=== PATIENT | female | born 1965 | race Caucasian/White ===

== ENCOUNTER 2018-10-29 08:20 | Inpatient (IN) ==
[2018-10-29] MEDS ORDERED: NS 1,000 ML IV ONE (08:30)
[2018-10-29] MEDS ORDERED: HUMULIN R IV ONE ×2 (08:31→10:23)
--- NOTE | 2018-10-29 08:34 | EKG Report ---
Test Performed on : 10/29/2018 08:15:00 AM Test Reason : ams Blood Pressure : / mmHG Vent. Rate : 088 BPM Atrial Rate : 088 BPM P-R Int : 142 ms QRS Dur : 132 ms QT Int : 400 ms P-R-T Axes : 057 023 034 degrees QTc Int : 484 ms Normal sinus rhythm. Right bundle branch block Abnormal ECG No previous ECGs available Unconfirmed Result
[2018-10-29 08:43] LABS: URINE SOURCE CATH
[2018-10-29 08:56] LABS: BASO# 0.03 X1000 (0.0-0.2); BASO% 0.4 % (0.0-0.8); EOS# 0.16 X1000 (0.0-0.7); EOS% 1.9 % (0.0-10.0); HEMATOCRIT 37.7 % (37.0-47.0); HEMOGLOBIN 13.3 g/dL (12.0-16.0); IMM GRAN# 0.03 X1000 (0.0-0.04); IMM GRAN% 0.4 % (0.0-0.5); LYMPH# 1.28 X1000 (1.2-3.4); LYMPH% 15.2 % (20.5-51.1); MCH 33.3 PG (27-31); MCHC 35.3 g/dL (33-37); MCV 94.5 FL (81-99); MONO# 0.46 X1000 (0.11-0.59); MONO% 5.5 % (1.7-9.3); MPV 10.5 FL (7.4-10.4); NEUT# 6.44 X1000 (1.4-6.5); NEUT% 76.6 % (42.2-75.2); PLT 211 X1000 (130-400); RBC 3.99 XMIL (4.2-5.4); RDW 12.6 % (11.5-14.5)
--- NOTE | 2018-10-29 08:57 | Diag Imaging Result Doc PS360 ---
EXAM: CHEST-1 VIEW 10/29/2018 HISTORY: ams TECHNIQUE: AP upright portable at 0843 COMMENT: There is no evidence of acute cardiac or pulmonary disease. There are no previous studies. IMPRESSION: No evidence of acute disease. Electronically signed by Percy Vazquez 10/29/2018 8:55 AM
[2018-10-29 08:59] LABS: BILIRUBIN URINE NEGATIVE (NEGATIVE); BLOOD URINE NEGATIVE (NEGATIVE); COLOR STRAW; GLUCOSE URINE >1000 mg/dL (NEGATIVE); KETONE URINE 80 mg/dL (NEGATIVE); LEUKOCYTES URINE SMALL (NEGATIVE); NITRITE URINE POSITIVE (NEGATIVE); PROTEIN URINE NEGATIVE (NEGATIVE); SP GRAVITY URINE 1.021; TURBIDITY URINE CLEAR (CLEAR); UR EPITHELIAL CELLS <10 /HPF (<10); URINE BACTERIA 2+ /HPF; URINE RBC <10 /HPF (<10); URINE WBC 20-40 /HPF (<10); UROBILINOGEN URINE NORMAL (NORMAL)
--- NOTE | 2018-10-29 09:12 | Diag Imaging Result Doc PS360 ---
CT HEAD W/O CONTRAST - 10/29/2018 INDICATION: ams COMPARISON: None FINDINGS: The ventricles and sulci are normal in size and contour. No intracranial mass or hemorrhage. The skull is intact. The sinuses mastoids and middle ears are clear. IMPRESSION: Negative exam. This exam was performed using automated exposure control, adjustment of mA or kV according to patient size, and/or use of iterative reconstruction technique Electronically signed by Luis M Ruiz 10/29/2018 9:10 AM
[2018-10-29 09:16] LABS: AGAP 19; ALB/GLOB RATIO 1.8; ALBUMIN 4.2 g/dL (3.5-5.0); ALKALINE PHOSPHATASE 96 U/L (32-104); BUN 26 mg/dL (8-22); CALCIUM 9.7 mg/dL (8.8-10.2); CHLORIDE 101 mmol/L (98-107); COSMO 311; CREATININE 0.7 mg/dL (0.5-0.9); ESTIMATED GFR > 60; GOT 14 U/L (10-30); GPT 16 U/L (10-36); POTASSIUM 4.6 mmol/L (3.5-5.1); SODIUM 140 mmol/L (136-145); TCO2 20 mmol/L (25-35); TOTAL BILIRUBIN 0.63 mg/dL (0.20-1.00); TOTAL PROTEIN 6.5 g/dL (6.3-8.3)
[2018-10-29 09:16] LABS: UR AMPHETAMINES QUAL NONE DETECTED (NONE DETECT); UR BARBITUATES QUAL NONE DETECTED (NONE DETECT); UR BENZODIAZEPIN QUAL NONE DETECTED (NONE DETECT); UR CANNABINOIDS QUAL PRESUMPTIVE POSITIVE (NONE DETECT); UR COCAINE QUAL NONE DETECTED (NONE DETECT); UR METHADONE QUAL NONE DETECTED (NONE DETECT); UR OPIATES QUAL NONE DETECTED (NONE DETECT); UR OXYCODONE QUAL NONE DETECTED (NONE DETECT); UR PCP QUAL NONE DETECTED (NONE DETECT)
[2018-10-29 09:21] LABS: ACETONE SERUM MODERATE (NEGATIVE)
[2018-10-29 09:28] LABS: ALLEN TEST YES; BE -6.6 mmoll (-3.0-3.0); BLOOD TYPE ARTERIAL; HCO3-(ACT) 19.7 mmoll (20.0-26.0); METHB 0.8 % (0.0-1.5); O2(CT) 18.3 mL/dL (15.0-23.0); PCO2(98.6) 35 mmHg (35-45); PO2(98.6) 90 mmHg (60-100); SAMPLE BLOOD; SAO2 96.7 % (95.0-100.0); THB 13.8 g/dL (11.5-17.4); pH(98.6) 7.33 (7.35-7.45)
[2018-10-29 09:29] LABS: MODALITY ROOM AIR
[2018-10-29 09:32] LABS: GLUCOSE 595 mg/dL (70-104)
--- NOTE | 2018-10-29 09:52 | PROVIDER DOCUMENTATION ---
HPI-Neurological Disorder - General Chief Complaint: Altered Mental Status Stated Complaint: AMS Time Seen by Provider: 10/29/18 08:27 Source: patient Allergies/Adverse Reactions: Patient Allergies Allergy/AdvReac Type Severity Reaction Status Date / Time No Known Allergies Allergy Verified 10/29/18 08:40 Home Medications: Home Medication List Medication Instructions Recorded Confirmed Last Taken Type Unobtainable [Home Meds 10/29/18 10/29/18 Unknown History Unobtainable] - History of Present Illness-Neuro Nature of Presenting Problem: 53 y/o WF c/o confusion and blood sugar being high for unknown timeframe. Pt is difficult historian and family not present to assist. Pt mainly only mumbles her name and that its March. Severity: reports: mild Onset/Duration: reports: unsure Timing: reports: still present Context: reports: other (pt c/o having high blood sugar and has mild confusion.) Character of Altered Mental Status: reports: confused Any recent trauma/injury?: reports: none Character of Deficits: denies: new weakness, altered sensation, vision problem/glaucoma, impaired speech, impaired swallowing, decreased ability to stand, decreased ability to walk, falling New weakness or altered sensation location:: reports: none Cognitive Baseline: alert but confused Gait Baseline: walks without assistance Associated Symptoms: reports: confusion Similar Symptoms Previously?: No Recently seen or treated by another doctor?: No Review of Systems - Adult - REVIEW OF SYSTEMS - ADULT ROS:: limited per condition Constitutional: reports: no symptoms reported, see HPI Eyes: reports: no symptoms reported, see HPI Ears, Nose, Mouth & Throat: reports: no symptoms reported, see HPI Cardiovascular: reports: no symptoms reported, see HPI Respiratory: reports: no symptoms reported, see HPI Gastrointestinal: reports: no symptoms reported, see HPI Genitourinary: reports: no symptoms reported, see HPI Musculoskeletal: reports: no symptoms reported, see HPI Integumentary: reports: no symptoms reported, see HPI Neurological: reports: see HPI Psychiatric: reports: no symptoms reported, see HPI Endocrine: reports: no symptoms reported, see HPI Hematologic/Lymphatic: reports: no symptoms reported, see HPI Allergic/Immunologic: reports: no symptoms reported, see HPI All Other Systems: Reviewed and Negative Past History - Adult - PAST MEDICAL HISTORY-ADULT Review of Records: reports: Nursing Assessment Review, Medications Reviewed, Social history reviewed & non-contributory. Physical Exam- Neurological - Physical Exam-Neuro Initial Vital Signs Reviewed: Yes General Appearance: appears well, no apparent distress, lethargic, slow to respond Eye Exam: bilateral eye: normal inspection, PERRL, EOMI HENMT: normocephalic/atraumatic, moist mucous membranes Head Injury: no evidence of injury Neck: non-tender Respiratory: chest non-tender, lungs clear, normal breath sounds, no pleuratic chest pain, no respiratory distress, no accessory muscle use Cardiovascular: normal peripheral pulses, regular rate, rhythm, no edema, no gallop, no JVD, no murmur Abdominal Exam: normal bowel sounds, non tender, soft Lymphatic: no adenopathy Extremity: normal range of motion, non-tender, normal gait, normal inspection, no pedal edema, no calf tenderness, normal capillary refill wall attendant Exam: normal hearing, normal speech, PERRL Coordination/Gait: normal finger to nose Motor/Sensory: no motor deficit, no sensory deficit, no pronator drift Neurologic: wall attendant II-XII nml as tested, grossly normal, no motor/sensory deficits Integumentary: normal color, normal turgor Psych/Mental Status: normal mood/affect, normal thought content, normal thought process, oriented x 3 - Glascow Coma Scale Best Eye Response: (4) open spontaneously Best Verbal Response: (4) confused conversation Best Motor Response: (6) obeys commands Progress - PLAN OF CARE/RESULTS Progress/Plan/Lab Results: Vital Signs - 8 hr 10/29/18 08:20 Temperature 98.1 F Pulse Rate 88 Respiratory Rate 17 Blood Pressure 150/90 O2 Sat by Pulse Oximetry 100 Laboratory Results - last 24 hr 10/29/18 10/29/18 10/29/18 08:15 08:20 08:20 WBC 8.40 RBC 3.99 L Hgb 13.3 Hct 37.7 MCV 94.5 MCH 33.3 H MCHC 35.3 RDW Std Deviation 12.6 Plt Count 211 MPV 10.5 H Immature Gran % (Auto) 0.4 Neut % (Auto) 76.6 H Lymph % (Auto) 15.2 L [place] % (Auto) 5.5 Eos % (Auto) 1.9 Baso % (Auto) 0.4 Immature Gran # (Auto) 0.03 Neut # (Auto) 6.44 Lymph # (Auto) 1.28 [place] # (Auto) 0.46 Eos # (Auto) 0.16 Baso # (Auto) 0.03 Specimen Type ARTERIAL Sample Site R RADIAL pH 7.33 L pCO2 35 pO2 90 HCO3 19.7 L Base Excess -6.6 L Oxyhemoglobin 94.0 L ABG O2 Sat (Calculated) 18.3 ABG O2 Saturation 96.7 ABG Carboxyhemoglobin 2.00 ABG Methemoglobin 0.8 John Test YES A-a O2 Difference 16.0 Total Hemoglobin 13.8 Lactate 3.10 H Blood Gas Modality ROOM AIR FiO2 % 21.0 Sodium 140 Potassium 4.6 Chloride 101 Carbon Dioxide 20 L Anion Gap 19 BUN 26 H Creatinine 0.7 Estimated GFR/1.73 m2 > 60 BUN/Creatinine Ratio 37 Glucose 595 H* POC Glucose Calculated Osmolality 311 Calcium 9.7 Total Bilirubin 0.63 AST 14 ALT 16 Alkaline Phosphatase 96 Troponin T Total Protein 6.5 Albumin 4.2 Globulin 2.3 Albumin/Globulin Ratio 1.8 Urine Source Urine Color Urine Turbidity Urine pH Ur Specific [place] Urine Protein Ur Glucose (Stick) Ur Ketones (Stick) Urine Blood Urine Nitrite Urine Bilirubin Urobilinogen Dipstick Urine Leukocytes Urine WBC (Auto) Urine RBC (Auto) U Epithel Cells (Auto) Urine Bacteria (Auto) Urine Opiates Screen Ur Oxycodone Screen Ur Methadone, Qual Ur Barbiturates Screen Ur Phencyclidine Scrn Ur Amphetamines Screen U Benzodiazepines Scrn Urine Cocaine Screen U Cannabinoids Screen Acetone Level MODERATE A 10/29/18 10/29/18 10/29/18 08:20 08:20 08:30 WBC RBC Hgb Hct MCV MCH MCHC RDW Std Deviation Plt Count MPV Immature Gran % (Auto) Neut % (Auto) Lymph % (Auto) [place] % (Auto) Eos % (Auto) Baso % (Auto) Immature Gran # (Auto) Neut # (Auto) Lymph # (Auto) [place] # (Auto) Eos # (Auto) Baso # (Auto) Specimen Type Sample Site pH pCO2 pO2 HCO3 Base Excess Oxyhemoglobin ABG O2 Sat (Calculated) ABG O2 Saturation ABG Carboxyhemoglobin ABG Methemoglobin John Test A-a O2 Difference Total Hemoglobin Lactate Blood Gas Modality FiO2 % Sodium Potassium Chloride Carbon Dioxide Anion Gap BUN Creatinine Estimated GFR/1.73 m2 BUN/Creatinine Ratio Glucose POC Glucose Calculated Osmolality Calcium Total Bilirubin AST ALT Alkaline Phosphatase Troponin T < 0.010 Total Protein Albumin Globulin Albumin/Globulin Ratio Urine Source CATH Urine Color STRAW Urine Turbidity CLEAR Urine pH 6.0 Ur Specific [place] 1.021 Urine Protein NEGATIVE Ur Glucose (Stick) >1000 A Ur Ketones (Stick) 80 A Urine Blood NEGATIVE Urine Nitrite POSITIVE A Urine Bilirubin NEGATIVE Urobilinogen Dipstick NORMAL Urine Leukocytes SMALL A Urine WBC (Auto) 20-40 A Urine RBC (Auto) <10 U Epithel Cells (Auto) <10 Urine Bacteria (Auto) 2+ Urine Opiates Screen NONE DETECTED Ur Oxycodone Screen NONE DETECTED Ur Methadone, Qual NONE DETECTED Ur Barbiturates Screen NONE DETECTED Ur Phencyclidine Scrn NONE DETECTED Ur Amphetamines Screen NONE DETECTED U Benzodiazepines Scrn NONE DETECTED Urine Cocaine Screen NONE DETECTED U Cannabinoids Screen PRESUMPTIVE POSITIVE A Acetone Level 10/29/18 09:49 WBC RBC Hgb Hct MCV MCH MCHC RDW Std Deviation Plt Count MPV Immature Gran % (Auto) Neut % (Auto) Lymph % (Auto) [place] % (Auto) Eos % (Auto) Baso % (Auto) Immature Gran # (Auto) Neut # (Auto) Lymph # (Auto) [place] # (Auto) Eos # (Auto) Baso # (Auto) Specimen Type Sample Site pH pCO2 pO2 HCO3 Base Excess Oxyhemoglobin ABG O2 Sat (Calculated) ABG O2 Saturation ABG Carboxyhemoglobin ABG Methemoglobin John Test A-a O2 Difference Total Hemoglobin Lactate Blood Gas Modality FiO2 % Sodium Potassium Chloride Carbon Dioxide Anion Gap BUN Creatinine Estimated GFR/1.73 m2 BUN/Creatinine Ratio Glucose POC Glucose 401 H Calculated Osmolality Calcium Total Bilirubin AST ALT Alkaline Phosphatase Troponin T Total Protein Albumin Globulin Albumin/Globulin Ratio Urine Source Urine Color Urine Turbidity Urine pH Ur Specific [place] Urine Protein Ur Glucose (Stick) Ur Ketones (Stick) Urine Blood Urine Nitrite Urine Bilirubin Urobilinogen Dipstick Urine Leukocytes Urine WBC (Auto) Urine RBC (Auto) U Epithel Cells (Auto) Urine Bacteria (Auto) Urine Opiates Screen Ur Oxycodone Screen Ur Methadone, Qual Ur Barbiturates Screen Ur Phencyclidine Scrn Ur Amphetamines Screen U Benzodiazepines Scrn Urine Cocaine Screen U Cannabinoids Screen Acetone Level Orders Category Date Time Status Nursing- Obtain EKG ONCE Care 10/29/18 08:29 Active CHEST-1 VIEW [RAD] Stat Exams 10/29/18 08:[address] HEAD W/O CONTRAST [CT] Stat Exams 10/29/18 08:35 Completed ABG [RESP] Routine Lab 10/29/18 08:15 Completed ACETONE SERUM [CHEM] Stat Lab 10/29/18 08:20 Completed CBC WITH ELECTRONIC DIFF [HEME] Stat Lab 10/29/18 08:20 Completed COMPREHENSIVE METABOLIC PANEL [CHEM] Stat Lab 10/29/18 08:20 Completed TROPONIN T Stat Lab 10/29/18 08:20 Completed URINALYSIS [URINALYSIS] Stat Lab 10/29/18 08:20 Completed URINE DRUG SCREEN Stat Lab 10/29/18 08:30 Completed 0.9% Sodium Chloride Inj [Ns] 1,000 ml Med 10/29/18 08:30 Discontinued IV 999 mls/hr Insulin Human Regular [Humulin R] Med 10/29/18 08:31 Discontinued 10 unit IV NOW ONE EKG [EKG] Stat Ther 10/29/18 08:29 Draft Result Diagrams: 10/29/18 08:20 10/29/18 08:20 - CT/MRI 1 CT Study: Head Impression: Normal, See EMR Report ([facility] - [address], [address] [address] [facility] - [address] [place] [address] Department of Imaging Patient: CHRISTINE COOKADM Date: 10/29/18MR#: [id number] : 1965ADM Status: PRE ERAcct#: [id number] Age/Sex: 53/FRoom/Bed: Loc: ED Ordering Physician: Marbin Vera MD Family Physician: Reason for Procedure: ams ___ Signed CT HEAD W/O CONTRAST - 10/29/2018 INDICATION: ams COMPARISON: None FINDINGS: The ventricles and sulci are normal in size and contour. No intracranial mass or hemorrhage. The skull is intact. The sinuses mastoids and middle ears are clear. IMPRESSION: Negative exam. This exam was performed using automated exposure control, adjustment of mA or kV according to patient size, and/or use of iterative reconstruction technique Electronically signed by LuisM Ruiz 10/29/2018 9:10 AM 10/29/18 0910 Interpreting Physician: Luis M Ruiz MD Dictated Date/Time: 10/29/18 0900 cc: Marbin Vera MD;) - CONSULTS/PCP/HOSPITALIST Notification #1 *Consult/PCP/Hospitalist*: Leida for Dr Tipton Time Discussed: 09:45 Consult Disposition: Will see in ED, Admit Departure - Departure Date of Disposition Decision: 10/29/18 Time of Disposition Decision: 10:01 DIAGNOSIS: DKA (diabetic ketoacidoses), Altered mental status, UTI (urinary tract infection), Substance abuse Disposition: ADMITTED INPATIENT 09 Certified Medical Emergency: Emergent Condition: Fair - Critical Care Note This patient required my direct & personal management of CC.: No Attestation - Physician/ MARINA Attestation Patient care was provided by Advanced Practice Provider:: No The physician spent face to face time with patient:: Yes Advanced Practice Provider documentation review:: Supervising physician onsite and consulted in the evaluation and care of this patient. The physician did have a face to face encounter with the patient. - NIH Stroke Scale NIH Type: Initial Evaluation Level of Consciousness: 1-Drowsy, but arousable with minimal stimulation LOC Questions (ask month and age): 1-Answers One Correctly Best Gaze (horizontal eye movement): 0-Normal Visual (use finger movement, counting or visual threat): 0-No Visual Loss Facial Palsy (show teeth or raise eyebrows & close eyes tght: 0-Symmetrical Movement Motor Function-left arm: 0-Normal Motor Function-right arm: 0-Normal Motor Function-left le-Normal Motor Function-right le-Normal Limb Ataxia(vuxbhb-fiwj-vpndlo, or heel to day): 0-No Ataxia Sensory(pin prick to face,arms,trunk,legs-compare side/side): 0-No Ataxia Best Language(name item/read sentence.Ex-Down to Earth): 0-No Aphasia Dysarthria(Pt read words or say words Ex.Mama,Tip-Top,Thanks: 0-Normal Articulation Extinction and Inattention: 0-Normal Modified [place] Score Criteria: 0-no symptoms
[2018-10-29] MEDS ORDERED: ROCEPHIN 1 GM in NS 50 ML IV ONE (10:04)
--- NOTE | 2018-10-29 10:08 | ED EKG INTERP ---
This chart was entered by Krysten Hodge Scribe, acting as scribe for Marbin Vera MD. EKG Interpretation - EKG Time of EKG reading by physician:: 08:15 EKG Read and Signed by:: Marbin Vera EKG Interpretation (*Must complete 3 of following elements*): Abnormal Rate: 88 Rhythm: nsr QRS: RBB SD Interval: normal ST Wave: normal Attestation - Physician/ MARINA Attestation Patient care was provided by Advanced Practice Provider:: No The physician spent face to face time with patient:: Yes Advanced Practice Provider documentation review:: Supervising physician onsite and consulted in the evaluation and care of this patient. The physician did have a face to face encounter with the patient. This chart was documented by the indicated scribe, (Krysten Hodge Scribe) and accurately reflects the services I performed and decisions made by me, Marbin Vera MD, as attested by the provider's signature.
[2018-10-29] MEDS ORDERED: HUMULIN R 100 UNIT in NS 100 ML IV SCH ×3 (10:15→10:45)
[2018-10-29] MEDS ORDERED: D50W SYRINGE IV PRN ×2 (10:23→10:45)
[2018-10-29] MEDS ORDERED: MAGNESIUM SULFATE 2 GM/S.W.I. 50 ML IV PRN (10:23)
[2018-10-29] MEDS ORDERED: D5 1/2 NS 1,000 ML IV PRN (10:23)
[2018-10-29] MEDS ORDERED: SODIUM PHOSPHATE 30 MMOL in D5W 250 ML IV PRN ×2 (10:23→11:00)
[2018-10-29] MEDS ORDERED: POTASSIUM CHLORIDE 10% LIQUID PO PRN ×2 (10:23→11:00)
[2018-10-29] MEDS ORDERED: ZOFRAN IV PRN ×2 (10:23→10:45)
[2018-10-29] MEDS ORDERED: SODIUM BICARBONATE 8.4% 100 MEQ in STERILE WATER INJ. 500 ML IV PRN ×2 (10:23→11:00)
[2018-10-29] MEDS ORDERED: TYLENOL PO PRN ×2 (10:23→10:45)
[2018-10-29] MEDS ORDERED: NS 1,000 ML IV SCH ×2 (10:30)
[2018-10-29] MEDS ORDERED: POTASSIUM CHLORIDE 40 MEQ/SWI 40 MEQ/100 ML IVPB IV PRN (11:00)
[2018-10-29] MEDS ORDERED: ZOFRAN PO PRN (11:00)
[2018-10-29] MEDS ORDERED: POTASSIUM CHLORIDE 20% LIQUID PO PRN (11:00)
[2018-10-29] MEDS ORDERED: MAGNESIUM SULFATE 2 GM/S.W.I. 2 GM/50 ML IVPB IV PRN (11:00)
--- NOTE | 2018-10-29 11:18 | HISTORY AND PHYSICAL ---
PRIMARY CARE PHYSICIAN: Unknown. CHIEF COMPLAINT: Altered mental status, confusion, and an increased blood sugar for an unknown time frame. The patient noted to be difficult historian, minimally answering questions, only mumbles her name and that it is March. No family present at this time. HISTORY OF PRESENTING ILLNESS: This is a 53-year-old female, who presents to [facility] with complaints of increased confusion, high blood sugar for an unknown time frame. The patient is noted to be a very difficult historian, would only mumble her name and that it was March. There was no family present at the bedside. When she arrived, her blood sugar was noted to be 595, CO2 was 20, anion gap was 19. ABG showed a pH of 7.33, pCO2 35, PO2 90, bicarbonate 19.7. Her acetone level was moderate. She was presumptive positive for cannabinoids, so she is being admitted to the intensive care unit for mild DKA. She is also noted to have a UTI with positive nitrites, small leukocytes, and 2+ bacteria for further evaluation and treatment. PAST MEDICAL HISTORY: Unknown. PAST SURGICAL HISTORY: Unknown. FAMILY HISTORY: Unknown. SOCIAL HISTORY: Unknown. ALLERGIES: No known drug allergies. HOME MEDICATIONS: Unknown. REVIEW OF SYSTEMS: Unable to obtain from patient, other than when she first got here she had an elevated blood sugar. LABORATORY DATA: Showed a white blood cell count of 8.40, hemoglobin 13.3, hematocrit 37.7, platelets 211. ABG with a pH of 7.33, pCO2 of 35, PO2 90, bicarbonate 19.7 and this was on room air. Sodium 140, potassium 4.6, chloride 101, CO2 20. BUN of 26, creatinine 0.7 glucose 595. Troponin less than 0.010. Urinalysis with positive nitrites, small leukocytes and 2+ bacteria. Urine drug screen was presumptive positive for cannabinoids. An acetone level showed moderate. IMAGING STUDIES: Chest x-ray showed no evidence of acute disease. EKG showed normal sinus rhythm at 88. Head CT showed a negative exam. PHYSICAL EXAMINATION: VITAL SIGNS: On arrival she had a temperature of 98.1 degrees, pulse 72, respirations 15, blood pressure 150/90, satting 100% on room air. GENERAL: This is a 53-year-old female, lying in the bed unable to answer questions appropriately. Would only mumble her name and say that it was March. HENT: Normocephalic, atraumatic. Normal ENT inspection. Oropharynx and nares are clear. EYES: Pupils are equal, round, reactive to light and accommodation. Extraocular movements are intact. NECK: Normal inspection, normal range of motion. LUNGS: Clear to auscultation bilaterally with equal lung expansion and chest wall movement. HEART: With regular rate and rhythm. No murmurs, rubs, or gallops. ABDOMEN: Soft, nontender, nondistended. Bowel sounds are present x4 quadrants. MUSCULOSKELETAL: Unable to assess at this time. NEUROLOGICAL: The cranial nerves 2-12 appear grossly intact. ASSESSMENT: 1. Mild diabetic ketoacidosis. 2. Urinary tract infection. 3. Marijuana abuse. 4. Altered mental status. PLAN: She will be admitted to the intensive care unit, placed on telemetry, clear liquid diabetic diet, insulin drip per protocol. Labs per the insulin drip protocol: Rocephin 1 gram IV q. 24 hours, placed on SCD for DVT prophylaxis, insert an indwelling Camejo catheter, obtain daily weights, blood sugars per the protocol and further orders after seen by attending. Dictated by SAL England for Scotty Tipton MD cc: SAL England Agree with the above. the following is my own face to face assessment. Patient quite somnolent with some metabolic encephalopathy but no identifiable focal neurologic deficits on exam. UDS pos for THC so may have had another ingestion as well. will treat DKA and monitor closely. MTDD
[2018-10-29] MEDS: D5 1/2 NS 1,000 ML IV SCH ×3 (11:31→22:35)
[2018-10-29] MEDS: NS 1,000 ML IV SCH ×5 (11:38→22:11)
[2018-10-29 11:59] LABS: AGAP 16; BUN 24 mg/dL (8-22); CALCIUM 9.6 mg/dL (8.8-10.2); CHLORIDE 110 mmol/L (98-107); COSMO 313; CREATININE 0.7 mg/dL (0.5-0.9); ESTIMATED GFR > 60; PHOSPHORUS 3.2 mg/dL (2.7-4.5); POTASSIUM 4.1 mmol/L (3.5-5.1); SODIUM 146 mmol/L (136-145); TCO2 20 mmol/L (25-35)
[2018-10-29 12:07] LABS: GLUCOSE 424 mg/dL (70-104)
[2018-10-29 12:26] LABS: URINE SOURCE CATH
[2018-10-29 12:33] LABS: BILIRUBIN URINE NEGATIVE (NEGATIVE); BLOOD URINE TRACE (NEGATIVE); COLOR YELLOW; GLUCOSE URINE >1000 mg/dL (NEGATIVE); KETONE URINE 60 mg/dL (NEGATIVE); LEUKOCYTES URINE MODERATE (NEGATIVE); NITRITE URINE POSITIVE (NEGATIVE); PH URINE 5.5; PROTEIN URINE TRACE mg/dL (NEGATIVE); SP GRAVITY URINE 1.021; TURBIDITY URINE CLEAR (CLEAR); UROBILINOGEN URINE NORMAL (NORMAL)
[2018-10-29 12:35] LABS: UR EPITHELIAL CELLS <10 /HPF (<10); URINE BACTERIA 1+ /HPF; URINE RBC <10 /HPF (<10); URINE WBC 20-40 /HPF (<10)
[2018-10-29] MEDS: POTASSIUM CHLORIDE 20 MEQ/SWI 20 MEQ/100 ML IVPB IV PRN ×3 (12:37→21:15)
[2018-10-29] MEDS: ZOFRAN IV PRN ×2 (14:40→20:15)
[2018-10-29 16:50] LABS: AGAP 12; BUN 18 mg/dL (8-22); CHLORIDE 117 mmol/L (98-107); COSMO 305; CREATININE 0.6 mg/dL (0.5-0.9); ESTIMATED GFR > 60; GLUCOSE 182 mg/dL (70-104); MAGNESIUM 1.8 mg/dL (1.5-2.7); PHOSPHORUS 2.9 mg/dL (2.7-4.5); POTASSIUM 4.2 mmol/L (3.5-5.1); SODIUM 150 mmol/L (136-145); TCO2 21 mmol/L (25-35)
[2018-10-29 20:28] LABS: AGAP 13; BUN 15 mg/dL (8-22); CALCIUM 9.4 mg/dL (8.8-10.2); CHLORIDE 111 mmol/L (98-107); COSMO 293; CREATININE 0.5 mg/dL (0.5-0.9); ESTIMATED GFR > 60; GLUCOSE 169 mg/dL (70-104); MAGNESIUM 1.7 mg/dL (1.5-2.7); PHOSPHORUS 2.9 mg/dL (2.7-4.5); POTASSIUM 4.3 mmol/L (3.5-5.1); SODIUM 145 mmol/L (136-145); TCO2 21 mmol/L (25-35)
[2018-10-29 23:55] LABS: AGAP 11; BUN 13 mg/dL (8-22); CALCIUM 8.8 mg/dL (8.8-10.2); CHLORIDE 110 mmol/L (98-107); COSMO 283; CREATININE 0.6 mg/dL (0.5-0.9); ESTIMATED GFR > 60; GLUCOSE 200 mg/dL (70-104); PHOSPHORUS 2.9 mg/dL (2.7-4.5); POTASSIUM 4.7 mmol/L (3.5-5.1); SODIUM 139 mmol/L (136-145); TCO2 18 mmol/L (25-35)
[2018-10-30] MEDS: POTASSIUM CHLORIDE 20 MEQ/SWI 20 MEQ/100 ML IVPB IV PRN ×2 (00:10→06:34)
[2018-10-30 04:36] LABS: BE -0.7 mmoll (-3.0-3.0); BLOOD TYPE ARTERIAL; HCO3-(ACT) 24.3 mmoll (20.0-26.0); PCO2(98.6) 35 mmHg (35-45); PO2(98.6) 78 mmHg (60-100); SAMPLE BLOOD; pH(98.6) 7.43 (7.35-7.45)
[2018-10-30 04:37] LABS: ALLEN TEST YES; METHB 0.6 % (0.0-1.5); MODALITY ROOM AIR; O2(CT) 17.4 mL/dL (15.0-23.0); O2HB 94.7 % (95.0-99.0); SAO2 96.5 % (95.0-100.0)
[2018-10-30 05:15] LABS: BASO# 0.02 X1000 (0.0-0.2); BASO% 0.3 % (0.0-0.8); EOS# 0.21 X1000 (0.0-0.7); EOS% 3.1 % (0.0-10.0); HEMATOCRIT 36.4 % (37.0-47.0); HEMOGLOBIN 12.7 g/dL (12.0-16.0); IMM GRAN# 0.02 X1000 (0.0-0.04); IMM GRAN% 0.3 % (0.0-0.5); LYMPH# 2.31 X1000 (1.2-3.4); LYMPH% 34.2 % (20.5-51.1); MCH 32.8 PG (27-31); MCHC 34.9 g/dL (33-37); MCV 94.1 FL (81-99); MONO# 0.48 X1000 (0.11-0.59); MONO% 7.1 % (1.7-9.3); MPV 10.4 FL (7.4-10.4); NEUT# 3.71 X1000 (1.4-6.5); PLT 219 X1000 (130-400); RBC 3.87 XMIL (4.2-5.4); RDW 12.9 % (11.5-14.5); WBC 6.75 X1000 (4.8-10.8)
[2018-10-30 05:43] LABS: MAGNESIUM 1.9 mg/dL (1.5-2.7); PHOSPHORUS 2.4 mg/dL (2.7-4.5)
[2018-10-30 05:58] LABS: AGAP 11; ALB/GLOB RATIO 1.3; ALBUMIN 3.5 g/dL (3.5-5.0); ALKALINE PHOSPHATASE 80 U/L (32-104); BUN 9 mg/dL (8-22); CALCIUM 9.3 mg/dL (8.8-10.2); CHLORIDE 108 mmol/L (98-107); COSMO 283; CREATININE 0.5 mg/dL (0.5-0.9); ESTIMATED GFR > 60; GLUCOSE 185 mg/dL (70-104); GOT 18 U/L (10-30); GPT 13 U/L (10-36); POTASSIUM 4.5 mmol/L (3.5-5.1); SODIUM 140 mmol/L (136-145); TCO2 21 mmol/L (25-35); TOTAL BILIRUBIN 0.35 mg/dL (0.20-1.00); TOTAL PROTEIN 6.3 g/dL (6.3-8.3)
[2018-10-30] MEDS: NS 1,000 ML IV SCH ×2 (06:38→14:28)
[2018-10-30] MEDS: D5 1/2 NS 1,000 ML IV SCH ×2 (06:42→14:43)
[2018-10-30] MEDS: HUMALOG SUBQ SCH ×3 (10:12→22:57)
[2018-10-30] MEDS: LANTUS INSULIN SUBQ SCH (10:12)
[2018-10-30] MEDS: ZOFRAN IV PRN (10:59)
[2018-10-30] MEDS: ROCEPHIN 1 GM in NS 50 ML IV SCH (11:30)
[2018-10-30 13:07] LABS: AGAP 9; BUN 7 mg/dL (8-22); CALCIUM 9.5 mg/dL (8.8-10.2); CHLORIDE 107 mmol/L (98-107); COSMO 278; CREATININE 0.6 mg/dL (0.5-0.9); ESTIMATED GFR > 60; GLUCOSE 140 mg/dL (70-104); MAGNESIUM 1.9 mg/dL (1.5-2.7); PHOSPHORUS 2.8 mg/dL (2.7-4.5); POTASSIUM 4.4 mmol/L (3.5-5.1); SODIUM 139 mmol/L (136-145); TCO2 23 mmol/L (25-35)
[2018-10-30] MEDS: NORVASC PO SCH (15:52)
--- NOTE | 2018-10-30 15:59 | PROGRESS NOTE ---
DATE: 10/30/2018 INTERVAL HISTORY: The patient is still slightly somnolent but much easily arousable. Cooperative and conversant. No acute events overnight. No new complaints. REVIEW OF SYSTEMS: Twelve point review of systems negative except as per interval history. LABORATORY: WBC 6.7, hemoglobin 12.7, hematocrit 36.4, and platelets 219,000. ABG with pH 7.4, pCO2 35, and p02 78 on room air. Sodium 140, potassium 4.6, bicarb 21, anion gap 11, BUN is 9, creatinine 0.5, glucose 180 to 200's. Repeat bicarb 23 and repeat gap 9. VITALS: T-max 98.2 degrees, pulse 73, respirations 12, and blood pressure 167/93. 02 sat 97% on room air. PHYSICAL EXAMINATION: General: No acute distress. Vitals: As above. HEENT: Normocephalic, atraumatic. Moist mucous membranes. No cervical adenopathy. Cardiovascular: Regular rate and rhythm. No murmurs noted. Pulmonary: Clear to auscultation bilaterally. No wheezing, rales, or rhonchi. Abdomen: Soft. Nontender. Nondistended. Bowel sounds present. Extremities: Peripheral pulses are intact. No clubbing or cyanosis. Neurologic: Cranial nerves grossly intact. No focal deficits identified. Psychiatric: Asleep but arousable, slightly somnolent. Suspect sleepy easily, but remains awake as long as she is stimulated. Cooperative, fairly conversant. Oriented to person and place but struggles with time. ASSESSMENT AND PLAN: 1. DKA. Appears to be resolved. Transitioned to subcutaneous insulin. Repeat labs still with closed gap. We will move her to the floor. Monitor her to make sure her gap remains closed on subcu insulin. If she continues to improve, may be able to be discharged home tomorrow. 2. Possible urinary tract infection. Patient on Rocephin. Afebrile. Continue Rocephin. 3. Pseudohyponatremia likely due to profound hyperglycemia, now resolved. 4. Medical noncompliance. Patient was not taking her insulin for several days prior to admission. The patient educated on the importance of compliance. 5. Hypertension remains elevated. It has been fairly consistently elevated. We will go ahead and start her on Norvasc and monitor. 6. Cardiac murmur. Uncertain, if she has had a previous workup. Likely benign, but we will check echocardiogram to make sure. 7. Vitiligo stable. 8. Marijuana use. The patient's admission UDS positive for marijuana. Given somnolence and confusion on admission, may have had other ingestion as well although her UDS was otherwise unremarkable. We do not really have a good home medication list. Polypharmacy could also play a role. She does appear to be improving. We will continue to monitor. E.J. NOBLE HOSPITALMoira
[2018-10-30] MEDS ORDERED: MYLICON DROPS PO PRN (17:30)
[2018-10-30] MEDS: PROTONIX PO SCH (17:56)
[2018-10-30] MEDS: ZANTAC PO SCH (22:55)
[2018-10-30] MEDS: TYLENOL PO PRN (23:04)
[2018-10-31] MEDS: HUMALOG SUBQ SCH ×2 (06:24→11:20)
[2018-10-31] MEDS: PROTONIX PO SCH (06:26)
[2018-10-31] MEDS ORDERED: SYNTHROID PO SCH (07:00)
[2018-10-31 07:49] VITALS: BP 144/76
[2018-10-31 08:08] LABS: BASO# 0.03 X1000 (0.0-0.2); BASO% 0.4 % (0.0-0.8); EOS# 0.19 X1000 (0.0-0.7); EOS% 2.8 % (0.0-10.0); HEMOGLOBIN 13.3 g/dL (12.0-16.0); IMM GRAN# 0.02 X1000 (0.0-0.04); IMM GRAN% 0.3 % (0.0-0.5); LYMPH% 27.7 % (20.5-51.1); MCH 32.2 PG (27-31); MCHC 34.1 g/dL (33-37); MCV 94.4 FL (81-99); MONO# 0.45 X1000 (0.11-0.59); MONO% 6.6 % (1.7-9.3); MPV 10.3 FL (7.4-10.4); NEUT# 4.28 X1000 (1.4-6.5); NEUT% 62.2 % (42.2-75.2); PLT 205 X1000 (130-400); RBC 4.13 XMIL (4.2-5.4); RDW 12.7 % (11.5-14.5); WBC 6.87 X1000 (4.8-10.8)
[2018-10-31 08:40] LABS: AGAP 15; BUN 11 mg/dL (8-22); CALCIUM 9.4 mg/dL (8.8-10.2); CHLORIDE 103 mmol/L (98-107); COSMO 286; CREATININE 0.7 mg/dL (0.5-0.9); ESTIMATED GFR > 60; FREE T4 1.28 ng/dL (0.93-1.70); GLUCOSE 296 mg/dL (70-104); SODIUM 138 mmol/L (136-145); TCO2 20 mmol/L (25-35); TSH 2.24 uIUmL (0.27-4.20)
[2018-10-31] MEDS ORDERED: TOPROL XL PO SCH (09:00)
[2018-10-31] MEDS ORDERED: EFFEXOR XR PO SCH (09:00)
[2018-10-31] MEDS ORDERED: VASOTEC PO SCH (09:00)
[2018-10-31] MEDS: NORVASC PO SCH (10:01)
[2018-10-31] MEDS: LANTUS INSULIN SUBQ SCH (10:01)
[2018-10-31] MEDS: ZANTAC PO SCH (10:02)
[2018-10-31] MEDS: ROCEPHIN 1 GM in NS 50 ML IV SCH (11:20)
[2018-10-31] MEDS: TYLENOL PO PRN (11:25)
[2018-10-31] MEDS ORDERED: HUMALOG SUBQ SCH (16:00)
--- NOTE | 2018-11-01 05:59 | DISCHARGE SUMMARY ---
ADMISSION DATE: 10/29/2018 DISCHARGE DATE: 10/31/2018 PRIMARY CARE PHYSICIAN: None. ADMISSION DIAGNOSES: 1. Mild diabetic ketoacidosis. 2. Urinary tract infection. 3. Marijuana abuse. 4. Altered mental status. DISCHARGE DIAGNOSES: 1. Diabetic ketoacidosis resolved. 2. Pseudohyponatremia likely due to profound hyperglycemia resolved. 3. Medical noncompliance. 4. Hypertension. 5. Cardiac murmur. 6. Vitiligo. 7. Marijuana use. SUMMARY OF FINDINGS: This is a 53-year-old female who presented to the ER with increased confusion, and a high blood sugar for an unknown time frame who is a very poor historian, and would only mumble her name and that it was March when she arrived. There was no family at bedside. She was noted to have blood sugar of 595, CO2 was 20, and anion gap 19. ABG showed a pH of 7.33, pCO2 35, PO2 90, bicarbonate 19.7, and moderate acetone level. Her urine drug screen was presumptive positive for cannabinoids. She was initially admitted to the intensive care unit for a mild DKA. She was also noted to have a UTI with positive nitrites, small leukocytes, and 2+ bacteria. Her urine culture grew out 20,000 to 55585 gram-negative rods of mixed karl. The patient is now off the insulin drip, and is on her routine medications. Her blood sugar this morning was down to 202, and it is now felt that she can safely be discharged home. DISCHARGE MEDICATIONS: 1. Amlodipine 10 mg p.o. daily. 2. Symbicort 160/4.5 2 puff inhalation b.i.d. 3. Enalapril 20 mg p.o. daily. 4. 10 mg p.o. daily. 5. Gabapentin 300 mg p.o. t.i.d. 6. NovoLog 70/30 20 units with supper, 40 units with breakfast subcutaneous. 7. Synthroid 200 mcg p.o. daily. 8. Metformin 1000 mg p.o. b.i.d. 9. Metoprolol 25 mg p.o. daily. 10. Ranitidine 150 mg p.o. b.i.d. 11. Spiriva 18 mcg inhalation daily. 12. Venlafaxine 150 mg p.o. daily. FOLLOW-UP: She needs to follow up with her primary care physician Shekhar Samano in 1 week. She states that she had plans to see him on Sunday. TIME SPENT: This is a 35 minute discharge. Dictated by SAL England for Scotty Tipton MD cc: SAL England agree with the above. the following is my own face to face assessment. abdomen s/nt/nd on exam. heart: RRR. discussed the importance of taking her insulin(patient was sick so she didn't take her insulin at all). recommended that patient discuss sick day protocols with her PCP or diabetes education. NANETTE
== END 2018-10-31 14:46 | disposition home or self-care (01) | DRG 638 ==
LOC: EDBD → ED 08:20 → ICU 10:18 → 3N 10-30 18:29
PROVIDERS: ATTEND Internal Medicine

== ENCOUNTER 2019-03-18 22:07 | Inpatient (IN) ==
[2019-03-18] MEDS ORDERED: NS 1,000 ML IV ONE (22:39)
[2019-03-18] MEDS ORDERED: ZOFRAN IV ONE (22:39)
[2019-03-18] MEDS ORDERED: ZOSYN 4.5 GM in NS 100 ML IV ONE (22:39)
[2019-03-18] MEDS ORDERED: VANCOMYCIN 1 GM/NS 1 GM/250 ML IVPB IV ONE (22:39)
[2019-03-18] MEDS ORDERED: MORPHINE IV ONE (22:39)
[2019-03-18 22:57] LABS: ALLEN TEST YES; BE -4.4 mmoll (-3.0-3.0); BLOOD TYPE ARTERIAL; HCO3-(ACT) 21.3 mmoll (20.0-26.0); METHB 0.5 % (0.0-1.5); O2(CT) 17.1 mL/dL (15.0-23.0); O2HB 91.5 % (95.0-99.0); PCO2(98.6) 35 mmHg (35-45); PO2(98.6) 85 mmHg (60-100); SAMPLE BLOOD; THB 13.2 g/dL (11.5-17.4); pH(98.6) 7.37 (7.35-7.45)
[2019-03-18 22:58] LABS: MODALITY ROOM AIR
[2019-03-18 23:53] LABS: URINE SOURCE CLEAN CATCH
[2019-03-19 00:03] LABS: BASO# 0.07 X1000 (0.0-0.2); BASO% 0.7 % (0.0-0.8); EOS# 0.43 X1000 (0.0-0.7); EOS% 4.4 % (0.0-10.0); HEMATOCRIT 37.4 % (37.0-47.0); IMM GRAN# 0.03 X1000 (0.0-0.04); IMM GRAN% 0.3 % (0.0-0.5); LYMPH# 2.55 X1000 (1.2-3.4); LYMPH% 25.9 % (20.5-51.1); MCH 31.2 PG (27-31); MCHC 34.8 g/dL (33-37); MCV 89.7 FL (81-99); MONO# 0.57 X1000 (0.11-0.59); MONO% 5.8 % (1.7-9.3); MPV 10.7 FL (7.4-10.4); NEUT# 6.21 X1000 (1.4-6.5); NEUT% 62.9 % (42.2-75.2); PLT 270 X1000 (130-400); RBC 4.17 XMIL (4.2-5.4); RDW 12.9 % (11.5-14.5); WBC 9.86 X1000 (4.8-10.8)
[2019-03-19 00:03] LABS: BILIRUBIN URINE NEGATIVE (NEGATIVE); BLOOD URINE NEGATIVE (NEGATIVE); COLOR YELLOW; GLUCOSE URINE 300 mg/dL (NEGATIVE); KETONE URINE NEGATIVE (NEGATIVE); LEUKOCYTES URINE NEGATIVE (NEGATIVE); NITRITE URINE NEGATIVE (NEGATIVE); PH URINE 6.5; PROTEIN URINE TRACE mg/dL (NEGATIVE); SP GRAVITY URINE 1.016; TURBIDITY URINE CLEAR (CLEAR); UR EPITHELIAL CELLS <10 /HPF (<10); URINE BACTERIA NEGATIVE /HPF; URINE RBC <10 /HPF (<10); URINE WBC <10 /HPF (<10); UROBILINOGEN URINE NORMAL (NORMAL)
[2019-03-19 00:05] LABS: INR 0.92; PROTIME 12.4 Seconds (11.0-16.0)
[2019-03-19 00:06] LABS: PTT 31.9 Seconds (22.3-41.8)
[2019-03-19 00:16] LABS: AGAP 12; ALB/GLOB RATIO 1.2; ALKALINE PHOSPHATASE 76 U/L (32-104); BUN 29 mg/dL (8-22); CALCIUM 9.5 mg/dL (8.8-10.2); CHLORIDE 106 mmol/L (98-107); CK PROFILE 91 U/L (24-173); COSMO 291; CREATININE 1.4 mg/dL (0.5-0.9); ESTIMATED GFR 39; GLUCOSE 298 mg/dL (70-104); GOT 16 U/L (10-30); GPT 14 U/L (10-36); MAGNESIUM 2.2 mg/dL (1.5-2.7); POTASSIUM 5.1 mmol/L (3.5-5.1); SODIUM 137 mmol/L (136-145); TCO2 19 mmol/L (25-35); TOTAL BILIRUBIN < 0.15 mg/dL (0.20-1.00); TOTAL PROTEIN 7.3 g/dL (6.3-8.3)
[2019-03-19] MEDS ORDERED: HUMULIN R IV ONE (01:25)
[2019-03-19] MEDS ORDERED: NS 1,000 ML IV ONE (01:41)
[2019-03-19] MEDS ORDERED: XYLOCAINE 1%/EPI 1:100,000 INJ ONE (02:13)
--- NOTE | 2019-03-19 03:23 | PROVIDER DOCUMENTATION ---
This chart was entered by Amanda Richard Scribe, acting as scribe for Quinton Pennington MD. HPI-Rash/Wound/ReCheck - General Chief Complaint: Wound Recheck Stated Complaint: RECHECK SPIDER BITE Time Seen by Provider: 03/18/19 22:34 Source: patient Allergies/Adverse Reactions: Allergies Allergy/AdvReac Type Severity Reaction Status Date / Time No Known Allergies Allergy Verified 03/09/19 17:35 Home Medications: Home Medication List Medication Instructions Recorded Confirmed Last Taken Type Albuterol Sulfate [Proair 2 puff INHALATION Q4H PRN PRN 10/30/18 03/09/19 03/08/19 History Respiclick] Budesonide/Formoterol Inhaler 2 puff INH BID 10/30/18 03/09/19 03/08/19 History [Symbicort 160/4.5 Microgm Inhaler] Enalapril Maleate 20 mg PO DAILY 10/30/18 03/09/19 03/08/19 History Ezetimibe 10 mg PO DAILY 10/30/18 03/09/19 03/08/19 History Gabapentin 300 mg PO TID 10/30/18 03/09/19 03/08/19 History Levothyroxine [Synthroid] 200 microgm PO DAILY 10/30/18 03/09/19 03/08/19 History Metformin HCl 1,000 mg PO BID 10/30/18 03/09/19 03/08/19 History Metoprolol Succinate E.r. [Toprol 25 mg PO DAILY 10/30/18 03/09/19 03/08/19 History Xl] Ranitidine HCl 150 mg PO BID 10/30/18 03/09/19 03/08/19 History Tiotropium [place] Inhaler 18 mcg INHALATION DAILY 10/30/18 03/09/19 03/08/19 History [Spiriva] Venlafaxine HCl [Venlafaxine HCl 150 mg PO DAILY 10/30/18 03/09/19 03/08/19 History ER] Amlodipine [Norvasc] 10 mg PO DAILY #30 tab 10/31/18 03/09/19 03/08/19 Rx Insulin Novolog 70/30 [Novolog Mix 20 unit SUBQ WSUPPER #1 insuln.pen 10/31/18 03/09/19 03/08/19 Rx 70/30] Insulin Novolog 70/30 [Novolog Mix 40 units SQ WBREAKFAST #0 10/31/18 03/09/19 03/08/19 Rx 70/30] Docusate Sodium [Colace] 100 mg PO TID #60 cap 02/16/19 03/09/19 03/08/19 Rx Famotidine [Pepcid] 20 mg PO BID #10 tab 02/16/19 03/09/19 03/08/19 Rx Nitrofurantoin [place]/Macrocryst 100 mg PO BID #20 cap 02/16/19 03/09/19 03/08/19 Rx [Macrobid] Ondansetron Odt [Zofran 4 mg Odt] 4 mg PO Q6H PRN PRN #15 tab 02/16/19 03/09/19 03/08/19 Rx Clindamycin [Cleocin] 300 mg PO Q6HR #40 cap 03/09/19 Unknown Rx - History of Present Illness-Dermatology Nature of Presenting Problem: pt is a 53 yr old female presenting with ongoing complaint of abscess to right neck, just posterior to right ear, pt has been seen x 2 for same, abx recently changed to to blood culture growth. pt reports wound worsening, pain increasing despite taking medications appropriately, pt also complains of chills, nausea and elevated BGL Location: reports: other (right neck) Quality: reports: painful Severity: reports: severe Onset/Duration: reports: other (2weeks) Timing: reports: getting worse Context/Associated Symptoms: reports: abscess, tender area. denies: fever Identifiable cause?: No Exposure: reports: unknown cause Locality of Occurance: Home Similar Symptoms Previously?: Yes Recently seen or treated by another doctor?: Yes (seen x 3 for same) - Recheck Antibiotics given: prescription Symptoms since procedure:: reports: pain, fever/chills, redness Review of Systems - Adult - REVIEW OF SYSTEMS - ADULT Constitutional: reports: chills. denies: fever Eyes: reports: no symptoms reported Ears, Nose, Mouth & Throat: denies: ear pain, sinus problem, throat pain Cardiovascular: denies: chest pain, palpitations, syncope Respiratory: denies: cough, shortness of breath, wheezing Gastrointestinal: reports: nausea. denies: abdominal pain, vomiting Genitourinary: reports: no symptoms reported Musculoskeletal: denies: muscle aches, muscle weakness Integumentary: reports: skin sores/ulcer Neurological: denies: dizziness/vertigo, headache/migraines, numbness Psychiatric: reports: no symptoms reported Endocrine: reports: no symptoms reported Hematologic/Lymphatic: reports: no symptoms reported Allergic/Immunologic: reports: no symptoms reported All Other Systems: Reviewed and Negative Past History - Adult - PAST MEDICAL HISTORY-ADULT Review of Records: reports: Old Records Reviewed, Nursing Assessment Review, Medications Reviewed, Social history reviewed & non-contributory. Major Childhood Illnesses: reports: denies history Cardiovascular: reports: denies history Respiratory: reports: denies history Gastrointestinal: reports: denies history Obstetrical/Gynecological: reports: denies history Genitourinary: reports: denies history Musculoskeletal: reports: denies history Neurological: reports: denies history Endocrine/Immune: reports: denies history Other Conditions: reports: denies history - IMMUNIZATION STATUS Childhood Immunizations: See Nurse Assessment Flu Vaccine: See Nurse Assessment - FAMILY HISTORY Family History: reviewed, not pertinent - SOCIAL HISTORY Smoking: cigarettes Provider spent 3-5 mins advising pt. on dangers of tobacco.: Discussed manners to quit use, and f/u contacts for add'l counseling. Substance Use: denies Living Situation: alone Physical Exam-General - PHYSICAL EXAM-ADULT Initial Vital Signs Reviewed: Yes - CONSTITUTIONAL General Appearance: alert, no apparent distress - EYES Eyes: PERRL/EOMI - HEAD, EARS, NOSE, MOUTH & THROAT HENMT: normocephalic/atraumatic - SKIN Integumentary: other (large, tender, red, hot, ping pong ball sized abscess to right neck, fluctuant with necrotic center and pustules emerging) - NEUROLOGIC Neurologic: grossly normal, no motor/sensory deficits - PSYCHIATRIC Psych/Mental Status: normal mood/affect, normal thought content, normal thought process, oriented x 3 Progress - PLAN OF CARE/RESULTS Progress/Plan/Lab Results: Vital Signs - 8 hr 03/18/19 22:12 Temperature 97.8 F Pulse Rate 95 H Respiratory Rate 20 Blood Pressure 178/84 O2 Sat by Pulse Oximetry 96 Laboratory Results - last 24 hr 03/18/19 03/18/19 03/18/19 22:39 23:19 23:19 WBC 9.86 RBC 4.17 L Hgb 13.0 Hct 37.4 MCV 89.7 MCH 31.2 H MCHC 34.8 RDW Std Deviation 12.9 Plt Count 270 MPV 10.7 H Immature Gran % (Auto) 0.3 Neut % (Auto) 62.9 Lymph % (Auto) 25.9 [place] % (Auto) 5.8 Eos % (Auto) 4.4 Baso % (Auto) 0.7 Immature Gran # (Auto) 0.03 Neut # (Auto) 6.21 Lymph # (Auto) 2.55 [place] # (Auto) 0.57 Eos # (Auto) 0.43 Baso # (Auto) 0.07 PT INR PTT (Actin FS) Specimen Type ARTERIAL Sample Site R RADIAL pH 7.37 pCO2 35 pO2 85 HCO3 21.3 Base Excess -4.4 L Oxyhemoglobin 91.5 L ABG O2 Sat (Calculated) 17.1 ABG O2 Saturation 96.0 ABG Carboxyhemoglobin 4.30 H ABG Methemoglobin 0.5 John Test YES A-a O2 Difference 21.0 Total Hemoglobin 13.2 Lactate 1.20 Blood Gas Modality ROOM AIR FiO2 % 21.0 Sodium Potassium Chloride Carbon Dioxide Anion Gap BUN Creatinine Estimated GFR/1.73 m2 BUN/Creatinine Ratio Glucose Calculated Osmolality Calcium Magnesium Total Bilirubin AST ALT Alkaline Phosphatase Creatine Kinase Troponin T High Sens Total Protein Albumin Globulin Albumin/Globulin Ratio Plasma Lactate Urine Source Urine Color Urine Turbidity Urine pH Ur Specific [place] Urine Protein Ur Glucose (Stick) Ur Ketones (Stick) Urine Blood Urine Nitrite Urine Bilirubin Urobilinogen Dipstick Urine Leukocytes Urine WBC (Auto) Urine RBC (Auto) U Epithel Cells (Auto) Urine Bacteria (Auto) Acetone Level NEGATIVE 03/18/19 03/18/19 03/18/19 23:19 23:19 23:19 WBC RBC Hgb Hct MCV MCH MCHC RDW Std Deviation Plt Count MPV Immature Gran % (Auto) Neut % (Auto) Lymph % (Auto) [place] % (Auto) Eos % (Auto) Baso % (Auto) Immature Gran # (Auto) Neut # (Auto) Lymph # (Auto) [place] # (Auto) Eos # (Auto) Baso # (Auto) PT 12.4 INR 0.92 PTT (Actin FS) 31.9 Specimen Type Sample Site pH pCO2 pO2 HCO3 Base Excess Oxyhemoglobin ABG O2 Sat (Calculated) ABG O2 Saturation ABG Carboxyhemoglobin ABG Methemoglobin John Test A-a O2 Difference Total Hemoglobin Lactate Blood Gas Modality FiO2 % Sodium 137 Potassium 5.1 Chloride 106 Carbon Dioxide 19 L Anion Gap 12 BUN 29 H Creatinine 1.4 H Estimated GFR/1.73 m2 39 BUN/Creatinine Ratio 21 Glucose 298 H Calculated Osmolality 291 Calcium 9.5 Magnesium 2.2 Total Bilirubin < 0.15 L AST 16 ALT 14 Alkaline Phosphatase 76 Creatine Kinase 91 Troponin T High Sens < 6 Total Protein 7.3 Albumin 4.0 Globulin 3.3 Albumin/Globulin Ratio 1.2 Plasma Lactate Urine Source Urine Color Urine Turbidity Urine pH Ur Specific [place] Urine Protein Ur Glucose (Stick) Ur Ketones (Stick) Urine Blood Urine Nitrite Urine Bilirubin Urobilinogen Dipstick Urine Leukocytes Urine WBC (Auto) Urine RBC (Auto) U Epithel Cells (Auto) Urine Bacteria (Auto) Acetone Level 03/18/19 03/18/19 03/19/19 23:19 23:44 02:37 WBC RBC Hgb Hct MCV MCH MCHC RDW Std Deviation Plt Count MPV Immature Gran % (Auto) Neut % (Auto) Lymph % (Auto) [place] % (Auto) Eos % (Auto) Baso % (Auto) Immature Gran # (Auto) Neut # (Auto) Lymph # (Auto) [place] # (Auto) Eos # (Auto) Baso # (Auto) PT INR PTT (Actin FS) Specimen Type Sample Site pH pCO2 pO2 HCO3 Base Excess Oxyhemoglobin ABG O2 Sat (Calculated) ABG O2 Saturation ABG Carboxyhemoglobin ABG Methemoglobin John Test A-a O2 Difference Total Hemoglobin Lactate Blood Gas Modality FiO2 % Sodium Potassium Chloride Carbon Dioxide Anion Gap BUN Creatinine Estimated GFR/1.73 m2 BUN/Creatinine Ratio Glucose Calculated Osmolality Calcium Magnesium Total Bilirubin AST ALT Alkaline Phosphatase Creatine Kinase Troponin T High Sens Total Protein Albumin Globulin Albumin/Globulin Ratio Plasma Lactate 1.1 0.9 Urine Source CLEAN CATCH Urine Color YELLOW Urine Turbidity CLEAR Urine pH 6.5 Ur Specific [place] 1.016 Urine Protein TRACE A Ur Glucose (Stick) 300 A Ur Ketones (Stick) NEGATIVE Urine Blood NEGATIVE Urine Nitrite NEGATIVE Urine Bilirubin NEGATIVE Urobilinogen Dipstick NORMAL Urine Leukocytes NEGATIVE Urine WBC (Auto) <10 Urine RBC (Auto) <10 U Epithel Cells (Auto) <10 Urine Bacteria (Auto) NEGATIVE Acetone Level Orders Category Date Time Status Cardiac Monitoring DIRECTED Care 03/18/19 22:38 Active I&D [I and D Set up] DIRECTED Care 03/19/19 02:13 Active IV Insertion ORDERED Care 03/18/19 22:38 Active CHEST-1 VIEW [RAD] Stat Exams 03/18/19 22:[address] NECK W/CONTRAST [CT] Stat Exams 03/18/19 22:40 Taken ABG [RESP] Routine Lab 03/18/19 22:39 Completed ACETONE SERUM [CHEM] Stat Lab 03/18/19 23:19 Completed BLOOD CULTURE [BLDCUL] Stat Lab 03/18/19 23:19 Results CBC WITH DIFF [HEME] Stat Lab 03/18/19 23:19 Completed CK PROFILE [SP CHEM] Stat Lab 03/18/19 23:19 Completed COMPREHENSIVE METABOLIC PANEL [CHEM] Stat Lab 03/18/19 23:19 Completed LACTATE, PLASMA [CHEM] Q3H Lab 03/18/19 23:19 Completed LACTATE, PLASMA [CHEM] Q3H Lab 03/19/19 02:37 Completed LACTATE, PLASMA [CHEM] Q3H Lab 03/19/19 04:45 Uncollected MAGNESIUM [CHEM] Stat Lab 03/18/19 23:19 Completed PROTIME WITH INR [COAG] Stat Lab 03/18/19 23:19 Completed PTT [COAG] Stat Lab 03/18/19 23:19 Completed ROUTINE CULTURE [RM] Routine Lab 03/18/19 00:03 Received TROPONIN T HIGH SENSITIVITY Stat Lab 03/18/19 23:19 Completed URINALYSIS W/POSS RFLX CULT [URINALYSIS] Stat Lab 03/18/19 23:44 Completed 0.9% Sodium Chloride Inj [Ns] 1,000 ml Med 03/18/19 22:39 Discontinued IV 999 mls/hr 0.9% Sodium Chloride Inj [Ns] 1,000 ml Med 03/19/19 01:41 Discontinued IV 999 mls/hr Insulin Human Regular [Humulin R] Med 03/19/19 01:25 Discontinued 10 unit IV NOW ONE Lidocaine 1%/Epi 1:100,000 [Xylocaine 1%/Epi 1:100,000] Med 03/19/19 02:13 Discontinued 20 ml INJ NOW ONE Morphine Med 03/18/19 22:39 Discontinued 2 mg IV NOW ONE Ondansetron [Zofran] Med 03/18/19 22:39 Discontinued 4 mg IV NOW ONE Piperacillin/Tazobactam [Zosyn] 4.5 gm Med 03/18/19 22:39 Discontinued 0.9% Sodium Chloride Inj [Ns] 100 ml IV NOW Vancomycin 1 gm/Ns Med 03/18/19 22:39 Discontinued 1 gm in 250 ml IV NOW Result Diagrams: 03/18/19 23:19 03/18/19 23:19 - REASSESSMENT Reassessment #1 Time Reassessed: 03:21 Status: improving (Given IVF, Vanc/zosyn and insulin) - XRAY 1 XRAY Study: Chest Impression: Normal (read by me at 0100) - CT/MRI 1 CT Study: Neck Impression: Abnormal (per [facility], 2.6 x 1.8 x 2.8cm superficial abscess, no extension.) - CONSULTS/PCP/HOSPITALIST Notification #1 *Consult/PCP/Hospitalist*: Angie Time Discussed: 02:33 Consult Disposition: Will see in ED, Admit Procedures - INCISION & DRAINAGE Site: right neck Abscess Type: Subcutaneous Prepped with: Hibiclens, Betadine Anesthetic: 1%, Lidocaine w/ Epinephrine Volume of Anesthetic (ml's): 12 Blade Size: 11 Packing placed?: Yes Sterile Dressing Applied?: Yes Drainage: Large Amount, Purulent Procedure Comment: no complications, tolerated procedure without difficulty Departure - Departure Date of Disposition Decision: 03/19/19 Time of Disposition Decision: 02:34 DIAGNOSIS: Cellulitis and abscess of neck, Type 2 diabetes mellitus with hyperglycemia, with long-term current use of insulin, Acute nontraumatic kidney injury, Tobacco use disorder, Failure of outpatient treatment Disposition: ADMITTED INPATIENT 09 Certified Medical Emergency: Emergent Condition: Stable - Critical Care Note This patient required my direct & personal management of CC.: No Attestation - Physician/ MARINA Attestation Patient care was provided by Advanced Practice Provider:: No The physician spent face to face time with patient:: Yes Advanced Practice Provider documentation review:: Supervising physician onsite and consulted in the evaluation and care of this patient. The physician did have a face to face encounter with the patient. This chart was documented by the indicated scribe, (Amanda Richard Scribe) and accurately reflects the services I performed and decisions made by , Quinton Pennington MD, as attested by the provider's signature.
[2019-03-19] MEDS ORDERED: VANCOMYCIN IV PER PHARMACY MISC SCH (04:30)
[2019-03-19] MEDS ORDERED: VENTOLIN HFA INH PRN (04:56)
[2019-03-19] MEDS ORDERED: VANCOMYCIN 350 MG in NS 100 ML IV ONE (06:00)
[2019-03-19] MEDS: ZOSYN 3.375 GM in NS 50 ML IV SCH ×4 (06:42→23:37)
[2019-03-19] MEDS: NS 1,000 ML IV SCH ×2 (06:42→17:58)
[2019-03-19] MEDS: HUMULIN R SUBQ SCH ×4 (06:47→21:09)
--- NOTE | 2019-03-19 06:52 | Diag Imaging Result Doc PS360 ---
CT NECK W/CONTRAST - 03/18/2019 INDICATION: abscess right neck COMPARISON: None FINDINGS: Posterior to the right parotid gland, there is an extremely superficial rim-enhancing fluid collection. This is oval and contains the subcutaneous space. This measures 2.8 x 2.6 x 1.8 cm. There is no apparent involvement of the deep muscles or parotid gland. No vascular involvement. This is superficial to the upper sternocleidomastoideus muscle. No adenopathy. Major salivary glands are normal. Pharyngeal mucosal spaces are normal. The lung apices are clear. Bones are intact and well mineralized. IMPRESSION: Superficial subcutaneous abscess in the right posterior neck. No involvement of deeper structures. This exam was performed using automated exposure control, adjustment of mA or kV according to patient size, and/or use of iterative reconstruction technique Electronically signed by Luis M Ruiz 03/19/2019 6:49 AM
--- NOTE | 2019-03-19 07:41 | HISTORY AND PHYSICAL ---
CHIEF COMPLAINT: Right neck abscess for about 3 weeks. HISTORY OF PRESENT ILLNESS: Ms. Codie Molina is a 53-year-old female who has a history of hypertension, diabetes mellitus, anxiety disorder, depression, as well as hypothyroidism. She presents to the hospital because of an abscess on the right side of her neck and posterior to the right ear, which she has had for about 3 weeks. Apparently, the patient was in the hospital about 3 to 4 days ago, and during that visit, she was discharged from the emergency room with antibiotics. The patient now presents back because of the worsening pain and the abscess not getting better. The patient was seen and evaluated in the ER. She did have incision and drainage done earlier on in the emergency room. The patient will be admitted to the floor now for further management. PAST MEDICAL HISTORY: Hypertension, diabetes mellitus, anxiety disorder, depression, hypothyroidism. PAST SURGICAL HISTORY: She has had tubal ligation, hysterectomy, as well as cholecystectomy. SOCIAL HISTORY: No history of cigarette smoking. No alcohol or drug use. ALLERGIES: No known drug allergies. FAMILY HISTORY: Positive for hypertension. MEDICATIONS: Include the following: ProAir 2 puffs every 4 hours p.r.n., Symbicort 2 puffs twice a day, enalapril 20 mg p.o. daily, Zetia 20 mg p.o. daily, gabapentin 300 mg p.o. 3 times a day, Synthroid 200 mcg p.o. daily, metformin 1 gram twice a day, metoprolol ER 25 mg p.o. daily, ranitidine 115 mg p.o. twice a day, Spiriva inhalation daily, venlafaxine 150 mg p.o. daily, amlodipine 10 mg p.o. daily, NovoLog 70/30 at 20 units with supper and 40 units at breakfast, Colace 100 mg p.o. 3 times a day, famotidine 20 mg p.o. twice a day, Macrobid 100 mg p.o. twice a day, ondansetron 4 mg every 6 hours p.r.n., clindamycin 300 mg p.o. every 6 hours. REVIEW OF SYSTEMS: Constitutional: Has fever. CHURN TENDER: Headaches. Eyes: Blurred vision. ENT: No sinus problem. Cardiovascular: No chest pain. Respiratory: No cough. GI: She does have some nausea. No abdominal pain. : No dysuria. Psychiatric: She has anxiety with depression. Endocrine: She has thyroid disease. Dermatology: No skin lesions, except as in the history of present illness. Musculoskeletal: No joint pains. Hematology: No bleeding problems. PHYSICAL EXAMINATION: VITAL SIGNS: Temperature 97.6 degrees, pulse 86, respirations 19, blood pressure 133/72, oxygen saturation 98%. HEENT: She is atraumatic, normocephalic. She is anicteric. No oral lesions noted. NECK: Supple. She does have a large abscess on the superior aspect of the right side of the neck, inferior and posterior to the right ear. The abscess has been incised and drained, and she does have a packing within the abscess cavity. NECK: No lymphadenopathy or thyromegaly. CARDIOVASCULAR: S1, S2. RESPIRATORY: Has evidence of good air entry bilaterally. ABDOMEN: Soft, nontender. No masses felt. EXTREMITIES: No evidence of edema. CENTRAL NERVOUS SYSTEM: No obvious focal deficit noted. LABORATORY DATA: WBC is 9.86, hematocrit is 37.4, with a platelet count of 270,000. INR is 0.92. Sodium is 137, potassium 5.1, chloride is 106, bicarb 19, BUN is 29, creatinine is 1.4, glucose 298. ASSESSMENT AND PLAN: 1. Neck abscess on the right side, status post incision and drainage. Obtain wound culture as well as 2 sets of blood cultures. Maintain the patient on empiric antibiotics. Will use a combination of Zosyn as well as vancomycin, and recommend local wound care. 2. Diabetes mellitus. Maintain the patient on sliding scale insulin. Monitor blood sugar levels. Check hemoglobin A1c. 3. Hypertension. Optimize blood pressure control. 4. Hypothyroidism. Check thyroid function tests. Continue levothyroxine. 5. Gastroesophageal reflux disease. Maintain the patient on proton pump inhibitor. 6. Deep vein thrombosis prophylaxis. Sequential compression devices. cc: Js Adams MD
--- NOTE | 2019-03-19 07:50 | Diag Imaging Result Doc PS360 ---
EXAM: CHEST-1 VIEW INDICATION: fever TECHNIQUE: One view COMPARISON: 10/29/2018 FINDINGS: The lungs are grossly clear. There is no discrete pleural fluid collection or pneumothorax. The cardiomediastinal silhouette and central vasculature are grossly unremarkable. IMPRESSION: No evidence of acute pathology by plain radiograph. Electronically signed by Rob Lynn 03/19/2019 7:47 AM
[2019-03-19] MEDS: PRILOSEC PO SCH (08:31)
[2019-03-19] MEDS: MORPHINE IV PRN ×2 (08:31→12:21)
[2019-03-19] MEDS ORDERED: NEURONTIN PO SCH (09:00)
[2019-03-19] MEDS ORDERED: COLACE PO SCH (09:00)
[2019-03-19] MEDS: TOPROL XL PO SCH (10:10)
[2019-03-19] MEDS: SYNTHROID PO SCH (10:10)
[2019-03-19] MEDS: EFFEXOR XR PO SCH (10:11)
[2019-03-19] MEDS: NORVASC PO SCH (10:11)
[2019-03-19] MEDS: ZETIA PO SCH (10:11)
[2019-03-19] MEDS: COLACE PO SCH ×3 (10:11→21:10)
[2019-03-19] MEDS: NEURONTIN PO SCH ×3 (10:16→21:10)
[2019-03-19] MEDS: SYMBICORT 160/4.5 MICROGM INHALER INH SCH ×2 (10:57→20:01)
[2019-03-19 14:20] LABS: BASO# 0.08 X1000 (0.0-0.2); BASO% 1.2 % (0.0-0.8); EOS# 0.38 X1000 (0.0-0.7); EOS% 5.6 % (0.0-10.0); HEMATOCRIT 38.9 % (37.0-47.0); HEMOGLOBIN 13.3 g/dL (12.0-16.0); LYMPH# 1.84 X1000 (1.2-3.4); LYMPH% 26.9 % (20.5-51.1); MCH 31.2 PG (27-31); MCHC 34.2 g/dL (33-37); MCV 91.3 FL (81-99); MONO# 0.38 X1000 (0.11-0.59); MONO% 5.6 % (1.7-9.3); MPV 10.4 FL (7.4-10.4); NEUT# 4.16 X1000 (1.4-6.5); NEUT% 60.7 % (42.2-75.2); PLT 244 X1000 (130-400); RBC 4.26 XMIL (4.2-5.4); RDW 13.3 % (11.5-14.5); WBC 6.84 X1000 (4.8-10.8)
[2019-03-19] MEDS: ZOFRAN IV PRN (14:24)
--- NOTE | 2019-03-19 14:44 | PROGRESS NOTE ---
DATE: 03/19/2019 SUBJECTIVE: Patient reports feeling fine. Less sensation of pressure in neck. OBJECTIVE: Vital Signs: Temperature 98 degrees, heart rate 80, respiratory rate 20, blood pressure 153/89. O2 saturation 97% on room air examination. General: This is a 53-year-old female lying in bed, in no acute distress. HEENT: Head is normocephalic, atraumatic. Neck: Patient has a large abscess in the right side of the neck that has been draining, that is covered by dressing, with packing. Cardiovascular: S1, S2 heard. No murmurs, gallops, or rubs. Regular rate and rhythm. Respiratory: Clear bilaterally to auscultation. No work of breathing or using accessory muscles. Abdomen: Soft, nontender to palpation. Bowel sounds present. No organomegaly. Extremities: No clubbing, cyanosis, or edema. Peripheral pulses present in both legs. Neurological: Patient alert oriented x3. Moves 4 extremities. LABORATORY DATA: None at the time of my dictation. ASSESSMENT AND PLAN: 1. Neck abscess in the right side status post incision and drainage. That has been drained in the emergency room. Wound culture has been obtained. Patient has been started on vancomycin and Zosyn. We will provide wound care. 2. Diabetes mellitus type 2. We will continue with sliding scale insulin. We will check hemoglobin A1c tomorrow. 3. Hypertension. Blood pressure is under control. We will continue with same management. For hypothyroidism, we will continue with home doses of levothyroxine. 4. Gastroesophageal reflux disease. We will continue with omeprazole. 5. Disposition. We will continue to monitor this patient closely. cc: Tank Graham MD
[2019-03-19 14:54] LABS: ALBUMIN 3.7 g/dL (3.5-5.0); PHOSPHORUS 2.6 mg/dL (2.7-4.5)
[2019-03-19] MEDS ORDERED: KAYEXALATE PO ONE (15:19)
[2019-03-19] MEDS ORDERED: PHENERGAN IV ONE (17:45)
[2019-03-19] MEDS ORDERED: SODIUM CHLORIDE 0.9% INJ ONE (17:45)
[2019-03-20] MEDS: ZOSYN 3.375 GM in NS 50 ML IV SCH ×3 (06:19→21:05)
[2019-03-20] MEDS: ZOFRAN IV PRN (06:19)
[2019-03-20] MEDS: MORPHINE IV PRN ×3 (06:19→16:06)
[2019-03-20] MEDS: PRILOSEC PO SCH (06:20)
[2019-03-20] MEDS: HUMULIN R SUBQ SCH ×4 (06:20→22:04)
[2019-03-20] MEDS: SYMBICORT 160/4.5 MICROGM INHALER INH SCH ×2 (08:13→19:43)
[2019-03-20 08:50] LABS: BASO# 0.06 X1000 (0.0-0.2); BASO% 0.9 % (0.0-0.8); EOS# 0.29 X1000 (0.0-0.7); EOS% 4.3 % (0.0-10.0); HEMATOCRIT 40.3 % (37.0-47.0); HEMOGLOBIN 13.2 g/dL (12.0-16.0); LYMPH# 1.91 X1000 (1.2-3.4); LYMPH% 28.5 % (20.5-51.1); MCH 30.6 PG (27-31); MCHC 32.8 g/dL (33-37); MCV 93.3 FL (81-99); MONO# 0.42 X1000 (0.11-0.59); MONO% 6.3 % (1.7-9.3); MPV 10.9 FL (7.4-10.4); NEUT# 4.03 X1000 (1.4-6.5); PLT 243 X1000 (130-400); RBC 4.32 XMIL (4.2-5.4); RDW 13.2 % (11.5-14.5); WBC 6.71 X1000 (4.8-10.8)
[2019-03-20 09:23] LABS: AGAP 8; ALBUMIN 3.7 g/dL (3.5-5.0); BUN 13 mg/dL (8-22); CALCIUM 9.3 mg/dL (8.8-10.2); CHLORIDE 106 mmol/L (98-107); COSMO 284; CREATININE 0.8 mg/dL (0.5-0.9); ESTIMATED GFR > 60; GLUCOSE 220 mg/dL (70-104); SODIUM 139 mmol/L (136-145); TCO2 25 mmol/L (25-35)
[2019-03-20] MEDS: EFFEXOR XR PO SCH (09:28)
[2019-03-20] MEDS: LOVENOX SUBQ SCH (09:28)
[2019-03-20] MEDS: COLACE PO SCH ×3 (09:28→20:50)
[2019-03-20] MEDS: SYNTHROID PO SCH (09:28)
[2019-03-20] MEDS: TOPROL XL PO SCH (09:28)
[2019-03-20] MEDS: ZETIA PO SCH (09:28)
[2019-03-20] MEDS: NORVASC PO SCH (09:28)
[2019-03-20] MEDS: NEURONTIN PO SCH ×3 (09:28→20:50)
[2019-03-20] MEDS: NS 1,000 ML IV SCH (09:38)
[2019-03-20] MEDS: VANCOMYCIN 1,150 MG in NS 250 ML IV SCH (14:11)
[2019-03-20] MEDS ORDERED: VANCOMYCIN 1,150 MG in NS 250 ML IV SCH (18:00)
--- NOTE | 2019-03-20 18:12 | PROGRESS NOTE ---
DATE: 03/20/2019 SUBJECTIVE: Patient reports feeling okay. In the area where the abscess is, she is still complaining of pain. OBJECTIVE: Vital Signs: Temperature 97.9, heart rate 65, respiratory rate 18, blood pressure 135/61, O2 saturation 97% on room air. General: This is a 53-year-old female lying in bed in no acute distress. HEENT: Head is normocephalic, atraumatic. Neck: The patient has what looks like an abscess on the right side of the neck that has been drained. Still very painful to palpation, very elevated, covered with a dressing with packing now. Cardiovascular: S1, S2 heard. No murmurs, gallops, or rubs. Regular rate and rhythm. Respiratory: Clear bilaterally to auscultation. No work of breathing or using accessory muscles. Abdomen: Soft, nontender to palpation. Bowel sounds present. No organomegaly. Extremities: No clubbing, cyanosis, or edema. Peripheral pulses present in both legs. Neurological: Patient alert and oriented x3. Moves 4 extremities. LABORATORY DATA: Reviewed. ASSESSMENT AND PLAN: 1. Neck abscess on the right side, status post incision and drainage. This wound does not look good. She has been seeing Wound Care, who recommends surgical consultation. Will do that. We will continue with vancomycin and Zosyn. 2. Diabetes mellitus type 2. Hemoglobin A1c indicates not well controlled. We will continue to check Accu-Cheks before meals and also at bedtime. 3. Hypertension. Blood pressure is under control. We will continue with the same management. 4. Hypothyroidism. Will continue home medication of levothyroxine. 5. Gastroesophageal reflux disease. We will continue with omeprazole. 6. Disposition. We will see what surgery has to say. cc: Tank Graham MD
[2019-03-21] MEDS: ZOSYN 3.375 GM in NS 50 ML IV SCH ×2 (00:30→06:32)
[2019-03-21] MEDS: MORPHINE IV PRN ×4 (01:04→20:59)
--- NOTE | 2019-03-21 03:09 | GENERAL SURGERY CONSULTATION ---
DATE: 03/20/2019 REQUESTING PHYSICIAN: Dr. Rodas. SURGEON CONSULTED: Jabier Tena MD. REASON FOR CONSULTATION: Neck abscess. HISTORY OF PRESENT ILLNESS: This is a 53-year-old female who felt something stinging in her neck several weeks ago. She has since had progressive swelling, redness and pain. She went to the ER and was given some antibiotics, then she came back to the ER and underwent incision and drainage and was admitted. She still complains of significant pain and not much relief. It is worse to touch. No relieving factors. No nausea, vomiting, fever, chills, or other systemic complaints. PAST MEDICAL HISTORY: Hypertension, diabetes, anxiety, depression, hypothyroidism. PAST SURGICAL HISTORY: Tubal ligation, hysterectomy, cholecystectomy. SOCIAL HISTORY: Negative for tobacco, alcohol or illicit drug use. ALLERGIES: No known drug allergies. FAMILY HISTORY: Positive for hypertension. REVIEW OF SYSTEMS: Ten systems reviewed and negative except as noted above. CURRENT MEDICATIONS: Albuterol, Norvasc, Symbicort, Colace, Lovenox, Zetia, Neurontin, Humulin, Synthroid, Toprol, vancomycin, Prilosec, Zofran, Zosyn, Effexor. PHYSICAL EXAMINATION: Vital Signs: Temperature 97.9 degrees, pulse 64, blood pressure 107/72, O2 saturation 98%. General: Well-developed, well-nourished female in no distress who looks her stated age. HEENT: Normocephalic, atraumatic. Extraocular muscles intact. Pupils are equal, round and reactive to light. Sclerae are anicteric. Neck: The trachea is midline. There is no thyromegaly. On the right lateral neck there is a 3 cm area of moderately severe induration and swelling with a central area that is open and draining purulent fluid. This area was expressed and it has some drainage, but it did not appear to be fluctuant with any undrained fluid pockets. CV: Regular rate and rhythm. Respiratory: Bilateral breath sounds. No work of breathing. GI: Soft, nontender, nondistended. Extremities: No clubbing, cyanosis or edema. Musculoskeletal: Moves all extremities equally and well. LABORATORY DATA: White blood cell count 6.7, hemoglobin 13, platelet count 243,000. Electrolytes reviewed and notable for glucose over 300. Hemoglobin A1c is 9.0. IMAGING: CT of the neck on 03/19/2019 showed a superficial subcutaneous abscess in the right posterior neck without involvement of deeper structures. ASSESSMENT AND PLAN: A 53-year-old female with right neck superficial abscess of the skin and subcutaneous tissues. She is status post incision and drainage. I do not feel any further drainage procedures are indicated. I will add an order for packing the wound daily. Continue the antibiotics and follow the cultures. We will observe her through the weekend for any clinical worsening or improvement. Thank you for the consultation. cc: Jabier Tena MD
[2019-03-21] MEDS: NS 1,000 ML IV SCH ×3 (05:46→21:04)
[2019-03-21] MEDS: PRILOSEC PO SCH (06:32)
[2019-03-21] MEDS: HUMULIN R SUBQ SCH ×4 (06:32→21:00)
[2019-03-21 07:07] LABS: BASO# 0.04 X1000 (0.0-0.2); BASO% 0.6 % (0.0-0.8); EOS# 0.18 X1000 (0.0-0.7); EOS% 2.5 % (0.0-10.0); HEMOGLOBIN 11.5 g/dL (12.0-16.0); IMM GRAN# 0.02 X1000 (0.0-0.04); IMM GRAN% 0.3 % (0.0-0.5); LYMPH# 2.26 X1000 (1.2-3.4); LYMPH% 31.3 % (20.5-51.1); MCH 30.6 PG (27-31); MCHC 32.9 g/dL (33-37); MCV 93.1 FL (81-99); MONO# 0.61 X1000 (0.11-0.59); MONO% 8.4 % (1.7-9.3); MPV 10.7 FL (7.4-10.4); NEUT# 4.11 X1000 (1.4-6.5); NEUT% 56.9 % (42.2-75.2); PLT 188 X1000 (130-400); RBC 3.76 XMIL (4.2-5.4); RDW 12.7 % (11.5-14.5); WBC 7.22 X1000 (4.8-10.8)
[2019-03-21 07:38] LABS: AGAP 8; ALBUMIN 3.3 g/dL (3.5-5.0); BUN 11 mg/dL (8-22); CHLORIDE 107 mmol/L (98-107); COSMO 282; CREATININE 0.6 mg/dL (0.5-0.9); ESTIMATED GFR > 60; GLUCOSE 156 mg/dL (70-104); PHOSPHORUS 3.7 mg/dL (2.7-4.5); POTASSIUM 4.8 mmol/L (3.5-5.1); SODIUM 140 mmol/L (136-145); TCO2 25 mmol/L (25-35)
[2019-03-21] MEDS: SYMBICORT 160/4.5 MICROGM INHALER INH SCH ×2 (08:12→20:06)
[2019-03-21] MEDS: TOPROL XL PO SCH (08:54)
[2019-03-21] MEDS: SYNTHROID PO SCH (08:54)
[2019-03-21] MEDS: NORVASC PO SCH (08:54)
[2019-03-21] MEDS: EFFEXOR XR PO SCH (08:55)
[2019-03-21] MEDS: ZETIA PO SCH (08:55)
[2019-03-21] MEDS: COLACE PO SCH ×3 (08:55→20:59)
[2019-03-21] MEDS: LOVENOX SUBQ SCH (08:55)
[2019-03-21] MEDS: NEURONTIN PO SCH ×3 (08:55→20:59)
--- NOTE | 2019-03-21 11:11 | PROGRESS NOTE ---
DATE: 03/21/2019 SUBJECTIVE: Patient reports feeling fine. Still complaining of some sensation of pressure. No more sensation of pressure around the right side of the neck. No fever or chills. OBJECTIVE: Vital Signs: Temperature 98 degrees, heart rate 65, respiratory rate 18, blood pressure 111/52. O2 saturation 97% on room air. General Examination: This is a 53-year-old female lying in bed, in no acute distress. HEENT: Head is normocephalic, atraumatic. Neck: There is a wound in the right side of the covered by dressing. Less painful to palpation today. Cardiovascular: S1, S2 heard. No murmurs, gallops, or rubs. Regular rate and rhythm. Respiratory: Clear bilaterally to auscultation. No work of breathing or using accessory muscles. Abdomen: Soft, nontender to palpation. Bowel sounds present. No organomegaly. Extremities: No clubbing, cyanosis or edema. Peripheral pulses present. Neurological: Patient is alert and oriented x3. Moves 4 extremities. LABORATORY DATA: Pending at the time of dictation. ASSESSMENT/PLAN: 1. Neck abscess of the right side status post incision and drainage. Wound does not look really good. Wound Care following this patient. We have consulted Surgery who thinks that this patient does not need any surgical approach at this point. They recommended to keep this patient over the weekend and see how she does. We will definitely follow recommendations. We will continue with vancomycin and Zosyn for that infection. 2. Diabetes mellitus type 2. We will continue Accu-Chek before meals and also at bedtime and sliding scale insulin as well. 3. Hypertension. Blood pressure is under control. We will continue with same medications. 4. Hypothyroidism. We will continue with levothyroxine home dosage. 5. Gastroesophageal reflux disease. We will continue with omeprazole. 6. Disposition. We will continue to monitor this patient closely. cc: Tank Graham MD
[2019-03-21] MEDS: ZOFRAN IV PRN (12:50)
[2019-03-21] MEDS: VANCOMYCIN 1,150 MG in NS 250 ML IV SCH (14:00)
--- NOTE | 2019-03-21 16:18 | GENERAL SURGERY PROGRESS NOTE ---
DATE: 03/21/2019 SUBJECTIVE: The patient feels about the same. OBJECTIVE: Afebrile, vital signs are stable.General: She is awake, alert, oriented x3. No acute distress. Neck: The right lateral neck skin was observed. There is the ongoing abscess with purulent drainage but appears to be adequately draining. LABORATORY: White cell count is 7. Wound culture positive for MRSA. ASSESSMENT AND PLAN: A 53-year-old female with methicillin-resistant Staphylococcus aureus right neck abscess is status post incision and drainage. It is draining. I think we can stop the Zosyn and continue the vancomycin for now. cc: Jabier Tena MD
[2019-03-22] MEDS: MORPHINE IV PRN ×3 (05:28→21:11)
[2019-03-22] MEDS: HUMULIN R SUBQ SCH ×6 (05:35→21:12)
[2019-03-22] MEDS: ZOFRAN IV PRN ×2 (05:35→21:11)
[2019-03-22] MEDS: PRILOSEC PO SCH ×2 (05:35→07:29)
[2019-03-22 07:30] LABS: BASO# 0.05 X1000 (0.0-0.2); BASO% 0.9 % (0.0-0.8); EOS# 0.21 X1000 (0.0-0.7); EOS% 3.8 % (0.0-10.0); HEMOGLOBIN 11.5 g/dL (12.0-16.0); LYMPH# 1.78 X1000 (1.2-3.4); LYMPH% 32.4 % (20.5-51.1); MCH 30.1 PG (27-31); MCHC 32.9 g/dL (33-37); MCV 91.6 FL (81-99); MONO# 0.32 X1000 (0.11-0.59); MONO% 5.8 % (1.7-9.3); MPV 11.2 FL (7.4-10.4); NEUT# 3.14 X1000 (1.4-6.5); NEUT% 57.1 % (42.2-75.2); PLT 178 X1000 (130-400); RBC 3.82 XMIL (4.2-5.4); RDW 12.2 % (11.5-14.5)
[2019-03-22 07:52] LABS: AGAP 9; ALBUMIN 3.4 g/dL (3.5-5.0); BUN 13 mg/dL (8-22); CHLORIDE 101 mmol/L (98-107); COSMO 287; CREATININE 0.7 mg/dL (0.5-0.9); ESTIMATED GFR > 60; GLUCOSE 359 mg/dL (70-104); PHOSPHORUS 3.6 mg/dL (2.7-4.5); POTASSIUM 4.6 mmol/L (3.5-5.1); SODIUM 136 mmol/L (136-145); TCO2 26 mmol/L (25-35)
[2019-03-22] MEDS: SYMBICORT 160/4.5 MICROGM INHALER INH SCH ×2 (08:15→19:14)
[2019-03-22] MEDS: NEURONTIN PO SCH ×3 (09:56→21:12)
[2019-03-22] MEDS: NORVASC PO SCH (09:56)
[2019-03-22] MEDS: ZETIA PO SCH (09:56)
[2019-03-22] MEDS: EFFEXOR XR PO SCH (09:56)
[2019-03-22] MEDS: SYNTHROID PO SCH (09:56)
[2019-03-22] MEDS: TOPROL XL PO SCH (09:56)
[2019-03-22] MEDS: LOVENOX SUBQ SCH (09:56)
[2019-03-22] MEDS: COLACE PO SCH ×3 (09:56→21:12)
[2019-03-22] MEDS: NS 1,000 ML IV SCH (11:13)
--- NOTE | 2019-03-22 14:06 | PROGRESS NOTE ---
DATE: 03/22/2019 SUBJECTIVE: Patient reports feeling fine. Denies any fever or chills. OBJECTIVE: Vital Signs: Temperature 98.1 degrees, heart rate 61, respiratory rate 14, blood pressure 122/67, O2 saturation 98% on room air. General: This is a 53-year-old female lying in bed, in no acute distress. Cardiovascular: S1 and S2 heard. No murmurs, gallops, or rubs. Regular rate and rhythm. Neck: There is a wound on the right side covered with dressing. Definitely less painful to palpation. Respiratory: Clear bilaterally to auscultation. No work of breathing or using accessory muscles. Abdomen: Soft, nontender to palpation. Bowel sounds present. No organomegaly. Extremities: No clubbing, cyanosis, or edema. Peripheral pulses present in both legs. Neurological: The patient alert and oriented x3. Moves 4 extremities. LABORATORY DATA: White cell count is 5.50. Normal BMP except elevation of blood sugar at 359. ASSESSMENT AND PLAN: 1. Neck abscess on the right side status post incision and drainage secondary to Methicillin- resistant Staphylococcus aureus. That is what the culture shows. At this point, Zosyn has been stopped and we will continue with vancomycin. At this point, considering that she is not spiking any fever and white cell count is normal. We will continue with vancomycin for at least until this Sunday and then we can switch to any oral Methicillin-resistant Staphylococcus aureus wound infection like clindamycin and doxycycline. 2. Diabetes mellitus type 2. Blood sugars are very elevated. We have restarted her insulin 70/30 and sliding scale insulin as well. 3. Hypertension. Blood pressure is under control. We will continue with the same management. 4. Hypothyroidism. We will continue with home doses of levothyroxine. 5. Gastroesophageal reflux disease. We will continue on omeprazole. 6. Disposition. We will continue with current management for methicillin-resistant Staphylococcus aureus infection. cc: Tank Graham MD
[2019-03-22] MEDS: VANCOMYCIN 1,150 MG in NS 250 ML IV SCH (14:28)
--- NOTE | 2019-03-22 15:41 | GENERAL SURGERY PROGRESS NOTE ---
DATE: 03/22/2019 SUBJECTIVE: She feels okay. No difficulty swallowing. No difficulty breathing. Dressing changes going well on her right neck abscess. OBJECTIVE: Vital Signs: No fevers. Pulse 61, blood pressure 122/67. General: She is alert. Her right neck abscess has resolving erythema, less induration. There is no gross purulence. Packing in place. White count 5, hematocrit 35. Creatinine 0.7. Glucose remains in the 300s. ASSESSMENT/PLAN: A 53-year-old female with right neck abscess admitted with apparent DKA as well. We will continue local wound care, dressing changes and antibiotics. We will follow her along but no plans for surgical intervention. cc: Talib Muñoz MD
[2019-03-22] MEDS: NOVOLOG MIX 70/30 SUBQ SCH (17:42)
[2019-03-23] MEDS: PRILOSEC PO SCH ×2 (05:23→07:12)
[2019-03-23] MEDS: ZOFRAN IV PRN ×2 (05:23→20:35)
[2019-03-23] MEDS: MORPHINE IV PRN ×4 (05:23→20:35)
[2019-03-23] MEDS: NS 1,000 ML IV SCH ×2 (07:11→20:34)
[2019-03-23] MEDS: HUMULIN R SUBQ SCH ×4 (07:12→20:37)
[2019-03-23] MEDS: SYMBICORT 160/4.5 MICROGM INHALER INH SCH ×2 (08:18→19:58)
[2019-03-23] MEDS: SYNTHROID PO SCH (08:29)
[2019-03-23] MEDS: ZETIA PO SCH (08:29)
[2019-03-23] MEDS: EFFEXOR XR PO SCH (08:31)
[2019-03-23] MEDS: NORVASC PO SCH (08:32)
[2019-03-23] MEDS: TOPROL XL PO SCH (08:32)
[2019-03-23] MEDS: COLACE PO SCH ×3 (08:32→20:35)
[2019-03-23] MEDS: LOVENOX SUBQ SCH (08:38)
[2019-03-23 08:41] LABS: AGAP 9; ALBUMIN 3.5 g/dL (3.5-5.0); BUN 12 mg/dL (8-22); CALCIUM 8.9 mg/dL (8.8-10.2); CHLORIDE 99 mmol/L (98-107); COSMO 278; CREATININE 0.7 mg/dL (0.5-0.9); ESTIMATED GFR > 60; GLUCOSE 217 mg/dL (70-104); PHOSPHORUS 3.8 mg/dL (2.7-4.5); POTASSIUM 4.7 mmol/L (3.5-5.1); SODIUM 136 mmol/L (136-145); TCO2 28 mmol/L (25-35)
[2019-03-23] MEDS: NOVOLOG MIX 70/30 SUBQ SCH ×2 (09:20→17:09)
[2019-03-23] MEDS: NEURONTIN PO SCH ×3 (09:44→20:35)
[2019-03-23] MEDS ORDERED: NICODERM PATCH TD SCH (09:45)
[2019-03-23] MEDS: VANCOMYCIN 1,150 MG in NS 250 ML IV SCH (13:37)
--- NOTE | 2019-03-23 14:41 | GENERAL SURGERY PROGRESS NOTE ---
DATE: 03/23/2019 SUBJECTIVE: Feels better, less pain. No fevers, no tachycardia, and no compromise to her airway. OBJECTIVE: On examination, the induration and erythema of her right neck are receding. I reviewed her labs. ASSESSMENT AND PLAN: A 53-year-old female with right neck abscess. We will continue local wound care and antibiotics. Dr. Tena will be back tomorrow. cc: Talib Muñoz MD
--- NOTE | 2019-03-23 15:47 | PROGRESS NOTE ---
DATE: 03/23/2019 SUBJECTIVE: Patient reports feeling fine. Denies any fever or chills. OBJECTIVE: Vital Signs: Temperature 98.1 degrees, heart rate 66, respiratory rate 16, blood pressure 130/73. O2 saturation 100% on room air. General: This is a 53-year-old female lying in bed, in no acute distress. Cardiovascular: S1, S2 heard. No murmurs, gallops, or rubs. Regular rate and rhythm. Neck: There is a wound in the right side covered with dressing, less painful to palpation, very small drainage. Respiratory: Clear bilaterally to auscultation. No work of breathing or using accessory muscles. Abdomen: Soft, nontender to palpation. Bowel sounds present. No organomegaly. Extremities: No clubbing, cyanosis, or edema. Peripheral pulses present in both legs. Neurological: Patient alert and oriented x3. Moves 4 extremities. LABORATORY DATA: Reviewed. ASSESSMENT/PLAN: 1. Neck abscess in the right side status post incision and drainage secondary to methicillin- resistant Staphylococcus aureus. The patient continues to be on vancomycin. She has been so far on that antibiotic for 4 days. Wound Care and General Surgery are following this patient. Unless Surgery plans to do something tomorrow, I think she can be discharged with oral medications for MRSA, namely clindamycin or doxycycline, and also appointment in the wound care clinic in [place]. 2. Diabetes mellitus type 2. Blood sugars continue to be very elevated. Insulin 70/30 has been restarted yesterday. We will continue to monitor. 3. Hypertension. Blood pressure is under control. We will continue with the same medications. 4. Hypothyroidism. Will continue home doses of levothyroxine. 5. Disposition. At this point, we will continue with current management. As we mentioned before, unless there is a procedure that needs to be done on this patient, she is going to be discharged on antibiotics and Wound Care Clinic appointment in [place]. cc: Tank Graham MD [id number]
[2019-03-24] MEDS ORDERED: VANCOMYCIN 1,150 MG in NS 250 ML IV SCH (02:00)
[2019-03-24] MEDS: ZOFRAN IV PRN (05:42)
[2019-03-24] MEDS: MORPHINE IV PRN ×2 (05:42→09:18)
[2019-03-24] MEDS: HUMULIN R SUBQ SCH (06:10)
[2019-03-24] MEDS: PRILOSEC PO SCH (06:10)
[2019-03-24] MEDS: SYMBICORT 160/4.5 MICROGM INHALER INH SCH (07:55)
[2019-03-24 08:00] VITALS: BP 144/75
[2019-03-24] MEDS: ZETIA PO SCH (08:44)
[2019-03-24] MEDS: NORVASC PO SCH (08:44)
[2019-03-24] MEDS: NEURONTIN PO SCH (08:44)
[2019-03-24] MEDS: EFFEXOR XR PO SCH (08:44)
[2019-03-24] MEDS: COLACE PO SCH (08:44)
[2019-03-24] MEDS: TOPROL XL PO SCH (08:44)
[2019-03-24] MEDS: SYNTHROID PO SCH (08:44)
[2019-03-24] MEDS: LOVENOX SUBQ SCH (08:47)
[2019-03-24] MEDS: NOVOLOG MIX 70/30 SUBQ SCH (09:20)
[2019-03-24] MEDS: NS 1,000 ML IV SCH (10:57)
== END 2019-03-24 12:43 | disposition home or self-care (01) | DRG 581 ==
LOC: ED 22:07 → EDIPHOLD 03-19 05:19 → SUATTDRO 03-19 05:19 → 3N 03-19 15:16
PROVIDERS: ATTEND Internal Medicine